=== PATIENT | female | born 1960 | race African-American/Black ===

== ENCOUNTER 2017-01-14 13:40 | Inpatient (IN) | payer MEDICAID, OTHER ==
[~2017-01-14] VITALS: Ht 165.1 cm; Wt 59.0 kg
[2017-01-14] MEDS ORDERED: SODIUM CHLORIDE 0.9% 1,000 ML IV ONE (13:55)
[2017-01-14] MEDS ORDERED: MORPHINE SULFATE 4 MG/ML SYRG IV ONE (14:00)
[2017-01-14] MEDS ORDERED: ONDANSETRON HCL 4 MG/2 ML VIAL IV ONE (14:00)
[2017-01-14 15:06] LABS: Basophils # (auto) 0 uL; Basophils % (auto) 0.6 % (0.0-2.0); CONDITION Y; Eosinophils # (auto) 0.1 uL; Eosinophils % (auto) 1.2 % (0.0-7.0); Hematocrit 32.1 % (36.0-46.0); Hemoglobin 10.8 g/dL (12.2-16.2); Lymphocytes # (auto) 2.1 uL; Lymphocytes % (auto) 38.7 % (10.0-50.0); Mean Corpuscular Hemoglobin 33.1 pg (28.0-32.0); Mean Corpuscular Hgb Conc. 33.6 g/dL (32.0-36.0); Mean Corpuscular Volume 98.4 fL (80.0-100.0); Mean Platelet Volume 7.9 fL (7.4-10.4); Monocytes # (auto) 0.5 uL; Monocytes % (auto) 9.9 % (0.0-12.0); Neutrophils # (auto) 2.7 uL; Neutrophils % (auto) 49.6 % (37.0-80.0); Platelet Count (auto) 258 10^3/uL (140-450); Red Cell Distribution Width 14.4 % (11.6-16.0); White Blood Cell 5.5 10^3/uL (4.4-10.8)
[2017-01-14 15:15] LABS: INR 0.98 (0.9-1.15); Partial Thromboplastin Time 25.7 sec (22.64-33.71); Prothrombin Time 10.7 sec (9.37-12.3)
[2017-01-14 15:25] LABS: Albumin 3.1 g/dL (3.4-5.0); Alkaline Phosphatase 97 U/L (45-117); Anion Gap 5 (5-15); Aspartate Aminotransferase 14 U/L (15-37); BUN/Creatinine Ratio 21.6; Bilirubin, Total 0.2 mg/dL (0.2-1.0); Blood Urea Nitrogen 16 mg/dL (7-18); Calcium 8.7 mg/dL (8.5-10.1); Carbon Dioxide 26 mmol/L (21-32); Chloride 113 mmol/L (98-107); GFR African American 105 mL/min; GFR Non-African American 87 mL/min; Glucose 90 mg/dL (74-106); Magnesium 2.1 mg/dL (1.6-2.6); Potassium 3.4 mmol/L (3.5-5.1); Sodium 144 mmol/L (136-145); Total Protein 6.4 g/dL (6.4-8.2)
[2017-01-14] MEDS ORDERED: LORazepam 0.5 MG TAB PO PRN (15:30)
[2017-01-14] MEDS ORDERED: ZOLPIDEM TARTRATE 5 MG TAB PO PRN (15:30)
[2017-01-14] MEDS ORDERED: MORPHINE SULF INJ 2 MG/ML SYRINGE 1ML IV PRN ×2 (15:30)
[2017-01-14] MEDS ORDERED: ACETAMINOPHEN 325 MG TAB PO PRN (15:30)
[2017-01-14] MEDS ORDERED: ALUM & MAG HYDROX-SIMETH LIQ(MAALOX) 30 ML PO ONE (15:30)
[2017-01-14] MEDS ORDERED: ONDANSETRON HCL 4 MG/2 ML VIAL IV PRN (15:30)
[2017-01-14] MEDS ORDERED: NITROGLYCERIN 0.4 MG SL TAB SL PRN ×2 (15:30)
[2017-01-14] MEDS ORDERED: POTASSIUM CHL 10 Meq TABLET PO ONE (15:45)
[2017-01-14] MEDS ORDERED: ENALAPRIL MALEATE 2.5 MG TAB PO ONE (16:00)
[2017-01-14] MEDS ORDERED: DOCUSATE SOD 100 MG CAP PO ONE (16:00)
[2017-01-14] MEDS ORDERED: ASPirin 81 mg TAB PO ONE (16:00)
[2017-01-14] MEDS ORDERED: CLOPIDOGREL BISULFATE 75 MG TAB PO ONE (16:00)
[2017-01-14 16:29] LABS: B-Type Natriuretic Peptide 64.5 pg/mL (0-100)
[2017-01-14 16:30] LABS: Temperature: 24.6 C (20.0-25.0)
[2017-01-14] MEDS ORDERED: NALOXONE HCL 1MG/ML 2ML SYRINGE ONE (17:37)
[2017-01-14 17:50] VITALS: BP 146/75
[2017-01-14 17:56] LABS: Urine Bilirubin Negative (Negative); Urine Blood Negative /uL (Negative); Urine Color Yellow (Yellow); Urine Glucose Normal (Normal); Urine Ketone Negative (Negative); Urine Mucus FEW (None Seen); Urine RBC 2 /hpf (0 - 4); Urine Squamous Epithelial Cell FEW /hpf (<5); Urine Urobilinogen Normal (Negative); Urine pH 5.5 (5.0-8.0)
[2017-01-14 17:58] LABS: Urine Nitrite POSITIVE (Negative)
[2017-01-14] MEDS ORDERED: BOOST PLUS 8 ounce PO SCH (18:00)
[2017-01-14] MEDS ORDERED: SODIUM CHLOR 0.9% PF (SALINE LOCK) 10ML VIAL IV SCH (22:00)
[2017-01-14] MEDS ORDERED: CARVEDILOL 3.125 MG TAB PO SCH (22:00)
[2017-01-14] MEDS ORDERED: ENALAPRIL MALEATE 2.5 MG TAB PO SCH (22:00)
[2017-01-14] MEDS ORDERED: ATORVASTATIN 20 MG TAB PO SCH (22:00)
[2017-01-15] MEDS ORDERED: CLOPIDOGREL BISULFATE 75 MG TAB PO SCH (10:00)
[2017-01-15] MEDS ORDERED: ASPirin 81 mg TAB PO SCH (10:00)
[2017-01-15] MEDS ORDERED: DOCUSATE SOD 100 MG CAP PO SCH (10:00)
== END 2017-01-14 19:39 | disposition left against medical advice (07) | DRG 198 ==
LOC: EDBD 13:40 → ER 13:40 → TELE 13:41
PROVIDERS: ADMIT Internal Medicine; ATTEND Internal Medicine
DX: R07.9 Chest pain, unspecified (principal); I25.2 Old myocardial infarction; E44.0 Moderate protein-calorie malnutrition; I69.351 Hemiplegia and hemiparesis following cerebral infarction affecting right dominant side; E88.09 Other disorders of plasma-protein metabolism, not elsewhere classified; D63.8 Anemia in other chronic diseases classified elsewhere; E78.5 Hyperlipidemia, unspecified; E87.6 Hypokalemia; I10 Essential (primary) hypertension; I25.10 Atherosclerotic heart disease of native coronary artery without angina pectoris; Z87.442 Personal history of urinary calculi; F17.210 Nicotine dependence, cigarettes, uncomplicated; Z82.49 Family history of ischemic heart disease and other diseases of the circulatory system; Z68.21 Body mass index [BMI] 21.0-21.9, adult
CPT/HCPCS: 36415; 71010; 80053; 81001; 82962; 83735; 83880; 84443; 84484; 85025; 85610; 85730; 87086; 87088; 87186; 93005; 93970; 94761; 96361; 96374; 96375; J2405